=== PATIENT | male | born 1970 | race Caucasian/White ===

== ENCOUNTER 2022-07-20 17:27 | Emergency (ER) | payer MEDICAID ==
[~2022-07-20] VITALS: Ht 175.3 cm; Wt 62.0 kg
[2022-07-20 18:13] VITALS: BP 131/65
[2022-07-20] MEDS ORDERED: INSULIN (18:17)
== END 2022-07-20 21:57 | disposition left against medical advice (07) ==
LOC: ER 17:27
DX: Z53.21 Procedure and treatment not carried out due to patient leaving prior to being seen by health care provider (principal)